=== PATIENT | female | born 1975 | race Caucasian/White ===

== ENCOUNTER 2016-04-26 05:55 | Emergency (ER) | payer OTHER ==
[~2016-04-26 05:55] MED LIST: AMOXICILLIN500 M1 PO; AMOXIL500 M1 PO; FLEXERIL10 MG PO; KLONOPIN0.5 M3 PO; KLONOPIN0.5 MG PO; NAPROSYN500 MG PO; NEURONTIN800 MG PO; NORCO 7.5-3251 EACH PO; OMEPRAZOLE20 M2 PO; OXYCONTIN20 MG PO; PERCOCET 5-3251 TAB PO; PROZAC10 M1 PO; SUMATRIPTAN SUC50 MG PO; ULTRAM PO; VIMPAT100 MG PO; VOLTAREN75 MG PO; ZOFRAN ODT4 MG PO; ZYPREXA PO
[2016-04-26 07:30] LABS: BASOPHIL% 0.4 % (0-2.5); EOSINOPHIL% 0.5 % (0.0-7.0); HEMATOCRIT 36.2 % (35.0-45.0); HEMOGLOBIN 11.9 gm/dL (12.0-16.0); LYMPHOCYTE# 0.5 X10e3 (1.0-3.5); LYMPHOCYTE% 10.7 % (17.0-45.0); MEAN CELL VOLUME 82.3 FL (83-96); MEAN CORPUSCULAR HEMOGLOBIN 27.2 PG (28-34); MEAN PLATELET VOLUME 8.4 FL (6.5-11.5); MONOCYTE# 0.5 X10e3 (0-1.0); MONOCYTE% 10.7 % (3.0-12.0); NEUTROPHIL# 3.9 X10e3 (1.5-7.1); NEUTROPHIL% 77.7 % (40-75); PLATELET COUNT 174 X10e3 (140-420); RED CELL DISTRIBUTION WIDTH 15.1 % (11.0-15.5)
[2016-04-26 07:40] LABS: DIFF IND NO
[2016-04-26 07:54] LABS: ALBUMIN SERUM 3.4 g/dL (3.5-5.0); ALKALINE PHOSPHATASE 64 U/L (32-92); ALT (SGPT) 22 U/L (10-40); AMYLASE 61 U/L (0-46); AST (SGOT) 29 U/L (10-42); BILIRUBIN, DIRECT <0.1 mg/dL (0.0-0.2); BILIRUBIN,INDIRECT 0.3 mg/dL (0.0-0.9); BILIRUBIN,TOTAL 0.4 mg/dL (0.2-2.0); BLOOD UREA NITROGEN 22 mg/dL (9-23); BUN/CREATININE RATIO 36.66; CALCIUM SERUM 9.2 mg/dL (8.4-10.2); CARBON DIOXIDE 26 mmol/L (22-31); CHLORIDE 103 mmol/L (100-111); CREATININE SERUM 0.6 mg/dL (0.6-1.4); GLOM FILT RATE Estimated ABOVE60 mL/min (>60); GLUCOSE FASTING 77 mg/dL (70-110); LIPASE 33 U/L (22-51); POTASSIUM 4.3 mmol/L (3.5-5.1); PROTEIN TOTAL SERUM 6.9 g/dL (6.0-8.3); SODIUM 137 mmol/L (135-145)
[2016-04-26 09:33] LABS: URINE SOURCE CLEAN CATCH
[2016-04-26 09:46] LABS: URINE APPEARANCE CLEAR; URINE BILIRUBIN NEG (NEG); URINE BLOOD NEG (NEG); URINE COLOR YELLOW; URINE GLUCOSE NEG (NEG); URINE KETONE NEG (NEG); URINE LEUKOCYTE ESTERASE TRACE (NEG); URINE NITRATE NEG (NEG); URINE PROTEIN NEG (NEG); URINE SPECIFIC GRAVITY 1.021 (1.003-1.035); URINE UROBILINOGEN 0.2 MG/DL (NEG)
[2016-04-26 09:51] LABS: URBCS1 AUWI 0-2 /[HPF] (0-2); URINE BACTERIA AUWI NEG (NEGATIVE); URINE SQUAMOUS EPITHELIAL CELL NONE SEEN /[HPF]
[2016-04-26 09:52] LABS: CULTURE INDICATED? NO
== END 2016-04-26 10:31 | disposition home or self-care (01) ==
LOC: CED 05:55
PROVIDERS: Emergency Medicine
DX: R11.2 Nausea with vomiting, unspecified (principal); R10.9 Unspecified abdominal pain; F17.200 Nicotine dependence, unspecified, uncomplicated; Z88.0 Allergy status to penicillin; Z88.6 Allergy status to analgesic agent; Z79.899 Other long term (current) drug therapy
CPT/HCPCS: 36415; 80048; 80076; 81003; 82150; 83690; 85025; 96361; 96374; 96375; 96376; 99284; J1200; J2270; J2405

== ENCOUNTER 2016-05-02 10:13 | Inpatient (IN) | payer OTHER ==
--- NOTE | ~2016-05-02 | CO ---
Unit #: [id number] #: [id number] Patient: WARREN RUSH [id number] [address] [place], [place] [address] [id number] I MR#: [id number] NAME: WARREN RUSH ROOM: 237 Age: 40 Sex: F Admission Date: 05/02/2016 : 1975 Attending Physician: Yue Vance M.D. Primary Care Physician: Facundo Oh M.D. Consultation Date: 05/03/2016 CONSULTATION REPORT REASON FOR EVALUATION Neutropenia and anal cancer, please evaluate. HISTORY OF PRESENT ILLNESS This 40-year-old lady who is well known to us with a long history of first colon cancer in 2001, followed by rectal cancer in 2014, liver metastasis, and chemoradiation therapy, now has anal carcinoma undergoing Xeloda plus radiation. Please see my November 26, 2015, consultation for details of her cancers. Today, on questioning she says the anal pain is much better. She had nausea and vomiting which have improved, and she had some urinary symptoms which are also expected due to the local radiation therapy. PAST MEDICAL HISTORY 1. Familial adenomatous polyposis or FAP. 2. Colon, rectal, and now anal carcinoma. 3. Severe anxiety and depression. 4. Rectal pain. CHRONIC MEDICATIONS 1. Xeloda. 2. Zofran. 3. Vimpat. 4. Promethazine. 5. Omeprazole. 6. Sumatriptan. 7. Zyprexa. 8. Prozac. 9. Flexeril. 10. Klonopin. 11. Gabapentin. 12. Percocet. ALLERGIES AMOXICILLIN, ASPIRIN, AND HYDROMORPHONE. REVIEW OF SYSTEMS Anal pain, nausea, vomiting, and diarrhea much improved since admission. No fever or chills, no night sweats. Otherwise, a 12-point review of systems was within normal limits. PHYSICAL EXAMINATION GENERAL: (1) lady, mildly pale, does not appear to be in acute distress, moderately drowsy. LUNGS: Clear. Unit #: [id number] #: [id number] Patient: WARREN RUSH CARDIOVASCULAR: Distant S1 and S2. ABDOMEN: Diffuse tenderness. No rebound, no rigidity. Suprapubic tenderness. PELVIC/BREASTS: Not performed. DIAGNOSTIC STUDIES LABORATORY: CBC with hemoglobin 10.4, hematocrit 32.3, white count 1600, and platelets 138,000. Sodium 139, potassium 3.9, chloride 108, CO2 of 25, glucose 76, BUN 8, and creatinine 0.7. IMPRESSION 1. Neutropenia in this lady with anal carcinoma, on Xeloda and radiation. She has had so far 13 of the 20 treatments. 2. Mild pancytopenia. PLAN Agree with Neupogen and holding the Xeloda. We will recheck a CBC in the morning and inform Radiation Oncology of her presence here and see if they want to see her for radiation tomorrow morning. Dictated by... Ziyad Cruz M.D. SPS/am TD: 05/04/2016 15:33 JOB #: [id number] CONSULTATION REPORT Page 1 of 1 X Ziyad Cruz MD X CONSULTATION REPORT
--- NOTE | ~2016-05-02 | HP ---
Unit #: [id number] #: [id number] Patient: WARREN RUSH [id number] [address] [place], [place] [address] [id number] I MR#: [id number] NAME: WARREN RUSH ROOM: 28976 Age: 40 Sex: F Admission Date: 05/02/2016 : 1975 Attending Physician: Nora Park M.D. Primary Care Physician: Facundo Oh M.D. HISTORY AND PHYSICAL CHIEF COMPLAINT Nausea and vomiting. HISTORY OF PRESENT ILLNESS The patient is a 40-year-old female with history of colorectal and anal cancer, who presented to the emergency room complaining of nausea and vomiting since yesterday. The patient stated that patient has been on oral chemotherapy and had the last radiation on Monday. The patient was doing fine on Monday and started developing nausea and vomiting and unable to keep anything down or take anything by mouth. The patient's last IV chemotherapy was at the beginning of this month. The patient is on oral chemotherapy with Xeloda by mouth. Denies any fever. Complains of the feeling cold. Denies any chills. Denies any chest pain, shortness of breath. The patient also complains of the pain mainly in the left lower quadrant and the pain in the back also. The patient was thought to have UTI. The UA shows 2+ leukocyte esterase and 100-200 urine WBCs and 2+ bacteria. The patient is being admitted for the above reasons. The patient was also found to be hypotensive during the ER evaluation with a blood pressure of 97/66. PAST MEDICAL HISTORY 1. History of colorectal and anal carcinoma. 2. History of severe anxiety. 3. History of depression. 4. Intractable rectal pain from carcinoma. 5. History of right lower lobe pulmonary embolism, currently not on anticoagulation. 6. Normocytic anemia. 7. Asthma. 8. History of familial adenomatous polyposis. 9. History of TIA and CVA. 10. History of previous feeding tube which was removed later. 11. History of colectomy with reversal. 12. Port placement. 13. Polysubstance abuse including marijuana. ALLERGIES Aspirin, amoxicillin, hydromorphone. PAST SURGICAL HISTORY 1. History of D and C x4. 2. Colon resection. 3. Liver resection. 4. Uterine surgery. Unit #: [id number] #: [id number] Patient: WARREN RUSH CURRENT MEDICATIONS 1. Vimpat. 2. Xeloda. 3. Zofran. 4. Promethazine. 5. Omeprazole. 6. Sumatriptan. 7. Zyprexa. 8. Prozac. 9. Flexeril. 10. She takes Klonopin. 11. Gabapentin. 12. Percocet. FAMILY HISTORY Positive for familial adenomatous polyposis and colon cancer. SOCIAL HISTORY Lives with the family. Smokes half pack of cigarettes daily. No alcohol or illicit drug abuse. REVIEW OF SYSTEMS A 14-point review of systems was performed and only pertinent positive findings are described above, remaining are negative. PHYSICAL EXAMINATION GENERAL: On examination, the patient is lying on the bed, not in acute distress. VITAL SIGNS: Temperature 98.1, pulse 103, respiratory rate 20, blood pressure 126/79, saturating 100% on room air. HEENT: Head: Atraumatic, normocephalic. Pupils equal, round, and reactive to light and accommodation. Extraocular movements are intact. Dry mucous membranes. NECK: Supple. No JVD. LUNGS: Clear to auscultation bilaterally. No rhonchi. No wheezing. HEART: Regular rate and rhythm. ABDOMEN: Soft. Positive bowel sounds. Tenderness at the left lower quadrant. EXTREMITIES: No pedal edema. No cyanosis. No clubbing. SKIN: No rashes. NEUROLOGIC: The patient is alert, awake, oriented. No gross focal motor deficit. DIAGNOSTIC STUDIES LABORATORY: Glucose 88, BUN 16, creatinine 0.8, sodium 140, potassium 3.8, chloride 109, bicarbonate 28. Total protein 6.7, albumin 3.2, AST 18, ALT 18, alkaline phosphatase 64, amylase 51. Lactic acid 0.6. INR is 1. WBC 3.3, hemoglobin 11.3, hematocrit 35.1, platelets 185,000. UA shows 2+ leukocyte esterase, 1+ blood, 100-200 urine WBCs, 2+ urine bacteria. IMAGING: Chest x-ray shows no acute cardiopulmonary findings. ASSESSMENT 1. Nausea and vomiting. 2. Urinary tract infection. 3. History of colon and anal cancer, on chemotherapy. Unit #: [id number] #: [id number] Patient: WARREN RUSH 4. Hypotension. PLAN Plan to admit the patient to the inpatient with the telemetry. Continue with IV antibiotics with Rocephin. Continue supportive care with Zofran and fluids normal saline (1) mL per hour. Pain controlled with morphine. Repeat the labs again in the morning. Further recommendations will follow. Dictated by Paulino Vasques TD: 05/02/2016 16:16 JOB #: [id number] HISTORY AND PHYSICAL X X HISTORY AND PHYSICAL
--- NOTE | ~2016-05-02 | DS ---
Unit #: [id number] #: [id number] Patient: WARREN WATSON [id number] [address] [address] [id number] I MR#: [id number] NAME: WARREN WATSON ROOM: 237 Age: 40 Sex: F Admission Date: 05/02/2016 : 1975 Discharge Date: 05/04/2016 Attending Physician: Yue Vance M.D. Primary Care Physician: Facundo Oh M.D. DISCHARGE SUMMARY PRIMARY CARE PROVIDER Facundo oh M.D. PRINCIPAL DIAGNOSES 1. 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 2. Nausea and vomiting, now resolved. 3. Severe anxiety. 4. Chemotherapy-induced pancytopenia, now resolved. 5. Rectal cancer. 6. Systemic inflammatory response syndrome. 7. Gastroesophageal reflux disease. 8. Mild protein malnutrition. 9. Familial adenomatous polyposis. 10. Tobaccoism. CONSULTANTS Dr. Cruz, Oncology. PROCEDURES Chest x-ray on 05/02/2016 with no acute findings, hyperinflation of the lungs is noted. CLINICAL HISTORY AND HOSPITAL COURSE Ms. Watson is a 40-year-old female with a history of rectal and anal cancer, metastatic to the liver, who presents to the emergency department with nausea, vomiting, and diarrhea. Please refer to H and P for further details. The patient was mildly hypotensive upon presentation and was found to have questionably urine infection. She was subsequently admitted. The patient was started on empiric antibiotics for questionable UTI, but urine culture was negative. Antibiotics were discontinued. Her nausea and vomiting resolved with just supportive measures, i.e., antiemetics, and IV fluids. The patient was pancytopenic and Dr. Cruz was consulted. She received a single dose of Neupogen and leukopenia has resolved. Her diarrhea is felt to be radiation induced, which I have discussed with her on several occasions. She will continue radiation under the care of Dr. Bong Sauer. The patient does have severe anxiety and upon review of records, it was suggested that her Prozac and her Zyprexa should be increased. I am going to increase her Prozac, but leave Zyprexa to Dr. Oh. Unit #: [id number] #: [id number] Patient: WARREN WATSON DISCHARGE CONDITION Stable. DISCHARGE STATUS Discharged to home. DISCHARGE MEDICATIONS Neurontin 800 mg t.i.d., Vimpat 100 mg b.i.d., Prozac 20 mg daily, Zofran 4 mg p.o. t.i.d. p.r.n. for anxiety, Phenergan 25 mg p.o. b.i.d. p.r.n. for nausea, Xeloda 1500 mg b.i.d., Klonopin 0.5 mg t.i.d., Imitrex 50 mg daily p.r.n. for migraine, Percocet 10/325 one tablet p.o. q.6 hours p.r.n. for pain, omeprazole 20 mg daily, Zyprexa 5 mg at bedtime, Flexeril 10 mg p.o. t.i.d. p.r.n. for muscle spasm. DISCHARGE INSTRUCTIONS The patient was instructed to follow a regular diet. She can increase her activity as tolerated. She should refrain from any further tobacco use. FOLLOWUP The patient should follow up with Dr. Facundo Oh in 2 weeks. She will follow up with Dr. Cruz and Dr. Sauer as previously scheduled. Dictated by... Yue Vance M.D. NELSON/obey TD: 05/05/2016 06:23 JOB #: [id number] DISCHARGE SUMMARY Page 1 of 1 X Yue Vance MD X DISCHARGE SUMMARY
--- NOTE | ~2016-05-02 | EKG ---
PATIENT: WARREN RUSH UNIT #: [id number] Ventricular Rate: 77 BPM Atrial Rate: 77 BPM P-R Interval: 114 ms QRS Duration: 88 ms Q-T Interval: 382 ms QTC Calculation(Bezet): 432 ms P [place]: 30 degrees Calculated R [place]: 92 degrees Calculated T [place]: 76 degrees Diagnosis Line: Normal sinus rhythm Diagnosis Line: Rightward axis Diagnosis Line: Borderline ECG Diagnosis Line: When compared with ECG of 07-JAN-2016 23:46, Diagnosis Line: Nonspecific T wave abnormality no longer evident Diagnosis Line: in Anterior leads Diagnosis Line: Confirmed by KOLTON CULVER MD ([id number]) on Diagnosis Line: 05/03/2016 2:22:03 PM INTERPRETING MD: PALOMO GUERRIER
--- NOTE | ~2016-05-02 | CR72 ---
[facility] A Service of [facility] RADIOLOGY TEXT RESULTS PATIENT: WARREN RUSH LOCATION: [facility] 330-01 : 75 UNIT #: [id number] AGE: [address]: EVERTON TOMAS MD SEX: F ORDER DR: [id number] [facility] [address] [facility]. [place], [place] [address] [id number] E MR#: [id number] Acc #: [id number] NAME: WARREN RUSH : 1975 SEX: F STUDY DATE/TIME: 05/02/2016 10:19 UNIT: DAMIAN ROOM: STUDY DESCRIPTION: CR Chest Single View Portable Attending Physician: Kin Colvin M.D. Ordering Physician: Kin Colvin M.D. Primary Care Physician: Facundo Oh M.D. MEDICAL IMAGING REPORT This report is preliminary unless electronic signature is present EXAM Chest portable 05/02/2016 11:14 hours. HISTORY 40-year-old woman with history of liver cancer and colon resection, complaining of nausea, vomiting, diarrhea with cough today. COMPARISON 03/05/2016. FINDINGS Portable upright chest demonstrates stable right IJ port catheter with tip in SVC. The cardiac, mediastinal and hilar contours are normal. The lungs are hyperinflated but clear. There is no pleural effusion, pneumothorax or free air seen in the abdomen. Stable plate and screw fixator through the clavicle. IMPRESSION No acute cardiopulmonary findings or change from 03/05/2016. Lungs are hyperinflated but clear. Dictated by... Madisyn Chicas M.D. THIS IS AN ELECTRONICALLY VERIFIED REPORT Madisyn Chicas M.D. at 05/02/2016 6:54 PM SMM/gz TD: 05/02/2016 14:49 JOB #: [id number] MEDICAL IMAGING REPORT Page 1 of 1 COPY
[2016-05-02 10:50] LABS: BASOPHIL% 0.4 % (0-2.5); EOSINOPHIL# 0.1 X10e3 (0-0.7); EOSINOPHIL% 2.9 % (0.0-7.0); HEMATOCRIT 35.1 % (35.0-45.0); HEMOGLOBIN 11.3 gm/dL (12.0-16.0); LYMPHOCYTE# 0.4 X10e3 (1.0-3.5); LYMPHOCYTE% 11.9 % (17.0-45.0); MEAN CORPUSCULAR HEMOGLOBIN 26.6 PG (28-34); MEAN CORPUSCULAR HGB CONC 32.1 g/dL (30-36); MONOCYTE# 0.5 X10e3 (0-1.0); MONOCYTE% 14.9 % (3.0-12.0); NEUTROPHIL# 2.3 X10e3 (1.5-7.1); NEUTROPHIL% 69.9 % (40-75); PLATELET COUNT 185 X10e3 (140-420); RED BLOOD COUNT 4.24 X10e (3.90-5.30); RED CELL DISTRIBUTION WIDTH 16.3 % (11.0-15.5); WHITE BLOOD COUNT 3.3 X10e3 (4.0-10.5)
[2016-05-02 10:55] LABS: DIFF IND NO
[2016-05-02 11:14] LABS: ALBUMIN SERUM 3.2 g/dL (3.5-5.0); ALKALINE PHOSPHATASE 64 U/L (32-92); ALT (SGPT) 18 U/L (10-40); AST (SGOT) 18 U/L (10-42); BILIRUBIN, DIRECT <0.1 mg/dL (0.0-0.2); BILIRUBIN,INDIRECT 0.2 mg/dL (0.0-0.9); BILIRUBIN,TOTAL 0.3 mg/dL (0.2-2.0); BLOOD UREA NITROGEN 16 mg/dL (9-23); CALCIUM SERUM 8.8 mg/dL (8.4-10.2); CARBON DIOXIDE 28 mmol/L (22-31); CHLORIDE 109 mmol/L (100-111); CREATININE SERUM 0.8 mg/dL (0.6-1.4); GLOM FILT RATE Estimated ABOVE60 mL/min (>60); GLUCOSE FASTING 88 mg/dL (70-110); LIPASE 42 U/L (22-51); POTASSIUM 3.8 mmol/L (3.5-5.1); PROTEIN TOTAL SERUM 6.7 g/dL (6.0-8.3); SODIUM 140 mmol/L (135-145)
[2016-05-02 12:42] LABS: URINE SOURCE CLEAN CATCH
[2016-05-02 12:48] LABS: URINE APPEARANCE CLOUDY; URINE BILIRUBIN NEG (NEG); URINE BLOOD 1+ (NEG); URINE COLOR YELLOW; URINE GLUCOSE NEG (NEG); URINE KETONE NEG (NEG); URINE LEUKOCYTE ESTERASE 2+ (NEG); URINE NITRATE NEG (NEG); URINE PH 6.5 (5-8); URINE PROTEIN NEG (NEG); URINE SPECIFIC GRAVITY 1.022 (1.003-1.035); URINE UROBILINOGEN 0.2 MG/DL (NEG)
[2016-05-02 12:51] LABS: CULTURE INDICATED? YES; URINE BACTERIA AUWI 2+ (NEGATIVE); URINE SQUAMOUS EPITHELIAL CELL OCC /[HPF]; UWBCS1 AUWI 100-200 (0-5)
[2016-05-02 13:06] LABS: U HYALINE CASTS AUWI 0-2 /[LPF]; URINE MUCUS PRESENT
[2016-05-02] MEDS ORDERED: VIMPAT100 MG PO (14:48)
[2016-05-02] MEDS ORDERED: XELODA500 MG PO (14:49)
[2016-05-02] MEDS ORDERED: ZOFRAN ODT4 MG PO (14:50)
[2016-05-02] MEDS ORDERED: PROMETHAZINE HC25 MG PO (14:51)
[2016-05-02] MEDS ORDERED: SUMATRIPTAN SUC50 MG PO (14:52)
[2016-05-02] MEDS ORDERED: OMEPRAZOLE20 M2 PO (14:52)
[2016-05-02] MEDS ORDERED: ZYPREXA PO (14:53)
[2016-05-02] MEDS ORDERED: PROZAC10 M1 PO (14:53)
[2016-05-02] MEDS ORDERED: FLEXERIL10 MG PO (14:54)
[2016-05-02] MEDS ORDERED: KLONOPIN0.5 MG PO (15:01)
[2016-05-02] MEDS ORDERED: PERCOCET 10/3251 TAB PO (15:01)
[2016-05-02] MEDS ORDERED: GABAPENTIN800 MG PO (15:01)
[2016-05-03 05:26] LABS: HEMATOCRIT 32.3 % (35.0-45.0); HEMOGLOBIN 10.4 gm/dL (12.0-16.0); MEAN CORPUSCULAR HEMOGLOBIN 26.8 PG (28-34); MEAN CORPUSCULAR HGB CONC 32.3 g/dL (30-36); MEAN PLATELET VOLUME 7.8 FL (6.5-11.5); RED BLOOD COUNT 3.89 X10e (3.90-5.30); RED CELL DISTRIBUTION WIDTH 16.8 % (11.0-15.5)
[2016-05-03 05:28] LABS: WHITE BLOOD COUNT 1.6 X10e3 (4.0-10.5)
[2016-05-03 06:00] LABS: BLOOD UREA NITROGEN 8 mg/dL (9-23); BUN/CREATININE RATIO 11.42; CALCIUM SERUM 8.6 mg/dL (8.4-10.2); CARBON DIOXIDE 25 mmol/L (22-31); CHLORIDE 108 mmol/L (100-111); CREATININE SERUM 0.7 mg/dL (0.6-1.4); GLOM FILT RATE Estimated ABOVE60 mL/min (>60); GLUCOSE FASTING 76 mg/dL (70-110); POTASSIUM 3.9 mmol/L (3.5-5.1); SODIUM 139 mmol/L (135-145)
[2016-05-04 09:04] LABS: HEMATOCRIT 34.4 % (35.0-45.0); HEMOGLOBIN 11.2 gm/dL (12.0-16.0); MEAN CELL VOLUME 82.3 FL (83-96); MEAN CORPUSCULAR HEMOGLOBIN 26.9 PG (28-34); MEAN CORPUSCULAR HGB CONC 32.6 g/dL (30-36); MEAN PLATELET VOLUME 7.6 FL (6.5-11.5); RED BLOOD COUNT 4.18 X10e (3.90-5.30); RED CELL DISTRIBUTION WIDTH 17.5 % (11.0-15.5)
[2016-05-04 09:47] LABS: BLOOD UREA NITROGEN 10 mg/dL (9-23); BUN/CREATININE RATIO 11.11; CALCIUM SERUM 8.8 mg/dL (8.4-10.2); CARBON DIOXIDE 28 mmol/L (22-31); CHLORIDE 105 mmol/L (100-111); CREATININE SERUM 0.9 mg/dL (0.6-1.4); GLOM FILT RATE Estimated ABOVE60 mL/min (>60); GLUCOSE FASTING 77 mg/dL (70-110); POTASSIUM 3.7 mmol/L (3.5-5.1); SODIUM 138 mmol/L (135-145)
== END 2016-05-04 16:22 | disposition home or self-care (01) | DRG 393 ==
LOC: CED 10:13 → CEDOF 14:55 → C3A PCU 18:41 → C2A 05-04 09:12
PROVIDERS: Emergency Medicine; Internal Medicine
DX: K62.7 Radiation proctitis (principal); D61.810 Antineoplastic chemotherapy induced pancytopenia; C78.7 Secondary malignant neoplasm of liver and intrahepatic bile duct; E46 Unspecified protein-calorie malnutrition; C21.0 Malignant neoplasm of anus, unspecified; K21.9 Gastro-esophageal reflux disease without esophagitis; D12.6 Benign neoplasm of colon, unspecified; R11.2 Nausea with vomiting, unspecified; F41.9 Anxiety disorder, unspecified; F17.210 Nicotine dependence, cigarettes, uncomplicated
CPT/HCPCS: 36415; 71010; 80048; 80076; 81003; 83605; 83630; 83690; 85025; 85027; 87040; 87086; 87493; 93005; 96361; 96374; 96375; 99285; J0696; J1447; J1642; J1650; J2270; J2405; J8521

== ENCOUNTER 2016-05-07 13:44 | Observation (INO) | payer OTHER ==
--- NOTE | ~2016-05-07 | CT16 ---
[facility] A Service of [facility] RADIOLOGY TEXT RESULTS PATIENT: WARREN RUSH LOCATION: [facility] : 75 UNIT #: [id number] AGE: [address]: Donavon Garcia MD SEX: F ORDER DR: [id number] [facility] [address] [facility]. [place], [place] [address] [id number] I MR#: [id number] Acc #: [id number] NAME: WARREN RUSH : 1975 SEX: F STUDY DATE/TIME: 05/07/2016 17:44 UNIT: CEDOF ROOM: 21538 STUDY DESCRIPTION: CT Angio Chest for PE Attending Physician: Donavon Marks M.D. Ordering Physician: Alex Fallon D.O. Primary Care Physician: Facundo Oh M.D. MEDICAL IMAGING REPORT This report is preliminary unless electronic signature is present EXAM CT chest PE protocol. HISTORY Shortness of air since yesterday. Also complains of abdominal pain. Past history of CVA. Prior liver resection. COMPARISON STUDIES CT chest, 01/25/2016. TECHNIQUE Axial images performed through the chest following IV contrast. 3-D coronal and sagittal reconstructed images reviewed at a workstation. This CT exam was performed with one or more of the following radiation dose reduction techniques: automatic exposure control, adjustment of mA and/or kV according to patient size, and iterative reconstruction. FINDINGS Mild pulmonary hyperinflation and patchy hyperlucency suggests emphysema. No acute airspace disease or consolidation. No effusions. Normal enhancement of the pulmonary arteries. No evidence of embolus. Heart size within normal limits. Aorta free of dissection or aneurysm. Upper abdomen remarkable for postsurgical changes from apparent liver resection. Osseous structures thoracic inlet unremarkable. Postsurgical changes are seen in the right clavicle. IMPRESSION 1. No acute intrathoracic abnormality identified. In particular, no evidence of embolus. 2. Pulmonary emphysema. [facility] A Service [facility] RADIOLOGY TEXT RESULTS PATIENT: WARREN RUSH LOCATION: [facility] 330 : 75 UNIT #: [id number] AGE: [address]: Donavon Garcia MD SEX: F ORDER DR: Dictated by... Israel Corcoran M.D. THIS IS AN ELECTRONICALLY VERIFIED REPORT Israel Corcoran M.D. at 05/08/2016 10:52 PM CAMERON/karissa TD: 05/08/2016 09:47 JOB #: [id number] MEDICAL IMAGING REPORT Page 1 of 1 COPY
--- NOTE | ~2016-05-07 | CR72 ---
[facility] A Service of [facility] RADIOLOGY TEXT RESULTS PATIENT: WARREN RUSH LOCATION: [facility] 330-01 : [birth year] UNIT #: [id number] AGE: [address]: Donavon Garcia MD SEX: F ORDER DR: [id number] [facility] [address] [facility]. [place], [place] [address] [id number] I MR#: [id number] Acc #: [id number] NAME: WARREN RUSH : 1975 SEX: F STUDY DATE/TIME: 05/07/2016 15:11 UNIT: CEDOF ROOM: 35311 STUDY DESCRIPTION: CR Chest Single View Portable Attending Physician: Nora Park M.D. Ordering Physician: Alex Fallon D.O. Primary Care Physician: Facundo Oh M.D. MEDICAL IMAGING REPORT This report is preliminary unless electronic signature is present EXAM Portable chest HISTORY Shortness of air and chest pain and right side pain for 4 days. FINDINGS The cardiac size and pulmonary vascularity are normal. No infiltrates or effusions. Right sided port catheter tip is in the low SVC. Internal fixation right clavicle. Mild mid-right thoracic curve. IMPRESSION No acute findings. Lungs are clear. Dictated by... Felix Devries M.D. THIS IS AN ELECTRONICALLY VERIFIED REPORT Felix Devries M.D. at 05/08/2016 5:15 PM DFL/rnr TD: 05/08/2016 04:49 JOB #: [id number] MEDICAL IMAGING REPORT Page 1 of 1 COPY
--- NOTE | ~2016-05-07 | HP ---
Unit #: [id number] #: [id number] Patient: WARREN RUSH [id number] [address] [address] [id number] I MR#: [id number] NAME: WARREN RUSH ROOM: 60865 Age: 40 Sex: F Admission Date: 05/07/2016 : 1975 Attending Physician: Donavon Marks M.D. Primary Care Physician: Facundo Oh M.D. HISTORY AND PHYSICAL CHIEF COMPLAINT Nausea, vomiting, and diarrhea. 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 The patient presented to the emergency room complaining of the nausea and vomiting and associated abdominal pain, started yesterday. The patient has had multiple admissions in the past for similar reasons. The patient denies any fever or chills. The patient had her last radiation on and the patient is on oral chemotherapy. Denies any chest pain, palpitations, or head trauma. PAST MEDICAL HISTORY 1. History of colorectal and anal cancer. 2. History of severe anxiety/depression, and intractable pain from carcinoma. 3. History of pulmonary embolism currently not on anticoagulation. 4. Normocytic anemia. 5. Asthma. 6. Familial adenomatous polyposis. 7. Transient ischemic attack. 8. Cerebrovascular accident. 9. Port placement. 10. Polysubstance abuse including marijuana. ALLERGIES Aspirin, amoxicillin, and hydromorphone. PAST SURGICAL HISTORY 1. History of D and C x4. 2. Colon resection. 3. Liver resection 4. Uterine surgery. HOME MEDICATIONS She is on: 1. Vimpat 2. Xeloda 3. Zofran 4. Promethazine 5. Omeprazole Unit #: [id number] #: [id number] Patient: WARREN RUSH 6. Sumatriptan 7. Zyprexa 8. Prozac 9. Flexeril 10. Klonopin 11. Gabapentin 12. Percocet FAMILY HISTORY Positive for familial adenomatous polyposis and colon cancer. SOCIAL HISTORY She lives with her family. She smokes half a pack of cigarettes daily, no alcohol or illicit drug abuse. REVIEW OF SYSTEMS A fourteen-point review of systems was performed and only pertinent positive findings are described above, remaining are negative. PHYSICAL EXAMINATION GENERAL: The patient is lying on the bed not in acute distress. VITAL SIGNS: Temperature 97.7, pulse 104, respirations 16, and blood pressure 101/59, and satting 100% at room air. HEENT: Head: Atraumatic, normocephalic. Pupils equal, round, and reactive to light and accommodation. Dry mucous membranes. NECK: Supple. No jugular venous distention. LUNGS: Clear to auscultation bilaterally, no rhonchi, and no wheezing. HEART: Regular rate and rhythm. ABDOMEN: Soft, positive bowel sounds. EXTREMITIES: No cyanosis, no clubbing. SKIN: No rashes. NEUROLOGIC: The patient is alert, awake, and oriented, no gross focal motor deficit. DIAGNOSTIC STUDIES LABORATORY DATA: Glucose 68, BUN 15, creatinine 0.7, sodium 139, potassium 3.9, chloride 102, bicarb 28, calcium 9.4, total protein 8, total bilirubin is less than 0.1, AST 35, ALT 30, alkaline phosphatase 80, and lipase 29, and lactic acid is 1.4. Beta HCG is negative. INR is 1. White blood count 3.5, hemoglobin 13.4, hematocrit 41.8, platelets 208, and urinalysis shows 1+ leukocyte esterase, and 5-10 urine WBCs. ASSESSMENT/PLAN 1. Nausea and vomiting. 2. History of rectal cancer. 3. 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 4. Hypotension. Plan to admit the patient to observation telemetry, continue IV fluids with the normal saline 125 mL per hour, continue with the Protonix and Zofran, and check the stools for the cultures, ova and parasite, and C. Difficile and repeat the labs again in the morning and further recommendations to follow. Dictated by Nora Park M.D. Unit #: [id number] #: [id number] Patient: WARREN RUSH/charles TD: 05/08/2016 09:46 JOB #: [id number] HISTORY AND PHYSICAL Page 1 of 1 X X HISTORY AND PHYSICAL
--- NOTE | ~2016-05-07 | DS ---
Unit #: [id number] #: [id number] Patient: WARREN WATSON [id number] [address] [address] [id number] I MR#: [id number] NAME: WARREN WATSON ROOM: 330 Age: 40 Sex: F Admission Date: 05/07/2016 : 1975 Discharge Date: 05/09/2016 Attending Physician: Yue Vance M.D. Primary Care Physician: Facundo Oh M.D. DISCHARGE SUMMARY PRIMARY CARE PHYSICIAN Facundo Oh M.D. PRINCIPAL DIAGNOSES 1. Radiation proctitis, now with soft formed stools. 2. Vulvovaginitis, status post Diflucan. 3. Nausea and vomiting, currently tolerating intake. 4. Drug-seeking behavior. 5. Tobaccoism. 6. Chronic pain syndrome. 7. Rectal cancer, maintained on chemotherapy and radiation. 8. Severe anxiety and depression. 9. Familial adenomatous polyposis. 10. Gastroesophageal reflux disease. CONSULTANTS None. PROCEDURES 1. CT angiogram of the chest on 05/07/2016 which was negative for PE. Emphysema noted. 2. Chest x-ray on 07/07/2016 which was negative. CLINICAL HISTORY AND HOSPITAL COURSE Ms. Watson is a 40-year-old female with a history of rectal cancer, who presents back to the emergency department with intractable nausea, vomiting, and diarrhea following discharge on 05/04/2016. Please refer to H and P for further details. Blood work in the emergency department is unremarkable. The patient was placed in observation. The patient was started on clear liquid diet, which has been advanced and she is not tolerating a diet without any nausea or vomiting. She continues to have some loose, but soft stools and does not have any evidence of infection. The patient's diarrhea secondary to her underlying rectal cancer and subsequent treatment. This was discussed with Dr. Cruz, who saw the patient last week, and there are no plans for any further changes in treatment. The patient does demonstrate significant drug-seeking behavior. She is on chronic Percocet at home and I will not adjust the dose. This can be followed up by her primary physician. Unit #: [id number] #: [id number] Patient: WARREN WATSON DISCHARGE CONDITION Stable. DISCHARGE STATUS Discharged to home. DISCHARGE MEDICATIONS Neurontin 800 mg p.o. t.i.d.; Vimpat 100 mg b.i.d.; Prozac 20 mg daily; Zofran 4 mg p.o. t.i.d. p.r.n. for nausea; Phenergan 25 mg p.o. b.i.d. p.r.n. for nausea; Xeloda 1500 mg b.i.d.; Klonopin 0.5 mg t.i.d.; Imitrex 50 mg daily p.r.n. for migraine; Percocet 10/325 one tablet p.o. q.6 hours p.r.n. for pain, no prescription given; omeprazole 20 mg daily; Zyprexa 5 mg daily; Flexeril 10 mg p.o. t.i.d. p.r.n. for muscle spasm. DISCHARGE INSTRUCTIONS The patient was instructed to follow a regular diet. She can increase her activity as tolerated to refrain from any further tobacco use. FOLLOWUP The patient will follow up with Dr. Cruz as instructed if she presents back to the emergency department without any significant signs of infection perhaps evaluation by [facility] would be appropriate given her nausea, vomiting, diarrhea, may be psychiatric in origin. Dictated by... Yue Vance M.D. NELSON/obey TD: 05/10/2016 01:40 JOB #: [id number] DISCHARGE SUMMARY Page 1 of 1 X Yue Vance MD X DISCHARGE SUMMARY
[~2016-05-07 13:44] MED LIST changes: +GABAPENTIN800 MG PO; +PERCOCET 10/3251 TAB PO; +PROMETHAZINE HC25 MG PO; +XELODA500 MG PO
[2016-05-07 15:17] LABS: URINE SOURCE CLEAN CATCH
[2016-05-07 15:27] LABS: URINE APPEARANCE CLOUDY; URINE BILIRUBIN NEG (NEG); URINE BLOOD NEG (NEG); URINE COLOR YELLOW; URINE GLUCOSE NEG (NEG); URINE KETONE NEG (NEG); URINE LEUKOCYTE ESTERASE 1+ (NEG); URINE NITRATE NEG (NEG); URINE PH 8.5 (5-8); URINE PROTEIN NEG (NEG); URINE SPECIFIC GRAVITY 1.023 (1.003-1.035); URINE UROBILINOGEN 0.2 MG/DL (NEG)
[2016-05-07 15:30] LABS: BASOPHIL% 0.5 % (0-2.5); CULTURE INDICATED? YES; EOSINOPHIL# 0.1 X10e3 (0-0.7); EOSINOPHIL% 1.9 % (0.0-7.0); HEMATOCRIT 41.8 % (35.0-45.0); HEMOGLOBIN 13.4 gm/dL (12.0-16.0); LYMPHOCYTE# 0.4 X10e3 (1.0-3.5); LYMPHOCYTE% 10.8 % (17.0-45.0); MEAN CELL VOLUME 83.2 FL (83-96); MEAN CORPUSCULAR HEMOGLOBIN 26.7 PG (28-34); MEAN CORPUSCULAR HGB CONC 32.1 g/dL (30-36); MONOCYTE# 0.5 X10e3 (0-1.0); NEUTROPHIL# 2.6 X10e3 (1.5-7.1); NEUTROPHIL% 73.8 % (40-75); PLATELET COUNT 208 X10e3 (140-420); RED BLOOD COUNT 5.02 X10e (3.90-5.30); RED CELL DISTRIBUTION WIDTH 18.2 % (11.0-15.5); URBCS1 AUWI 0-2 /[HPF] (0-2); URINE BACTERIA AUWI NEG (NEGATIVE); URINE SQUAMOUS EPITHELIAL CELL OCC /[HPF]; WHITE BLOOD COUNT 3.5 X10e3 (4.0-10.5)
[2016-05-07 15:32] LABS: DIFF IND NO
[2016-05-07 15:37] LABS: POC - CKMB <1.0 ng/mL (0.0-7.9); POC - TROPONIN <0.05 ng/mL (<=0.05)
[2016-05-07 16:07] LABS: ALKALINE PHOSPHATASE 80 U/L (32-92); ALT (SGPT) 30 U/L (10-40); AST (SGOT) 35 U/L (10-42); BILIRUBIN, DIRECT 0.1 mg/dL (0.0-0.2); BLOOD UREA NITROGEN 15 mg/dL (9-23); BUN/CREATININE RATIO 21.42; CALCIUM SERUM 9.4 mg/dL (8.4-10.2); CARBON DIOXIDE 28 mmol/L (22-31); CHLORIDE 102 mmol/L (100-111); CREATININE SERUM 0.7 mg/dL (0.6-1.4); GLOM FILT RATE Estimated 108.4 mL/min (>60); GLUCOSE FASTING 68 mg/dL (70-110); LIPASE 29 U/L (22-51); POTASSIUM 3.9 mmol/L (3.5-5.1); SODIUM 139 mmol/L (135-145)
[2016-05-07 16:08] LABS: BILIRUBIN,TOTAL <0.1 mg/dL (0.2-2.0)
[2016-05-07 17:14] LABS: POC - CKMB <1.0 ng/mL (0.0-7.9); POC - TROPONIN <0.05 ng/mL (<=0.05)
[2016-05-08 05:37] LABS: HEMATOCRIT 32.7 % (35.0-45.0); MEAN CELL VOLUME 83.5 FL (83-96); MEAN CORPUSCULAR HGB CONC 32.3 g/dL (30-36); MEAN PLATELET VOLUME 8.1 FL (6.5-11.5); RED BLOOD COUNT 3.92 X10e (3.90-5.30); RED CELL DISTRIBUTION WIDTH 18.3 % (11.0-15.5); WHITE BLOOD COUNT 3.3 X10e3 (4.0-10.5)
[2016-05-08 05:42] LABS: HEMOGLOBIN 10.6 gm/dL (12.0-16.0)
[2016-05-08 08:02] LABS: BUN/CREATININE RATIO 23.33; CALCIUM SERUM 8.8 mg/dL (8.4-10.2); CREATININE SERUM 0.6 mg/dL (0.6-1.4); POTASSIUM 4.3 mmol/L (3.5-5.1)
[2016-05-09] MEDS ORDERED: BENADRYL25 M1 PO (12:14)
== END 2016-05-09 12:49 | disposition home or self-care (01) ==
LOC: CED 13:44 → CEDOF 18:34 → C3A PCU 05-08 09:59
PROVIDERS: Emergency Medicine; Internal Medicine
DX: K62.7 Radiation proctitis (principal); Y84.2 Radiological procedure and radiotherapy as the cause of abnormal reaction of the patient, or of later complication, without mention of misadventure at the time of the procedure; C20 Malignant neoplasm of rectum; I95.9 Hypotension, unspecified; N76.0 Acute vaginitis; R11.2 Nausea with vomiting, unspecified; Z76.5 Malingerer [conscious simulation]; F17.210 Nicotine dependence, cigarettes, uncomplicated; G89.4 Chronic pain syndrome; F41.8 Other specified anxiety disorders; K21.9 Gastro-esophageal reflux disease without esophagitis; Z85.038 Personal history of other malignant neoplasm of large intestine; Z86.711 Personal history of pulmonary embolism; Z86.73 Personal history of transient ischemic attack (TIA), and cerebral infarction without residual deficits; Z88.1 Allergy status to other antibiotic agents; Z88.6 Allergy status to analgesic agent; Z88.5 Allergy status to narcotic agent; Z80.0 Family history of malignant neoplasm of digestive organs; Z83.71 Family history of colonic polyps
CPT/HCPCS: 36415; 51701; 71010; 71275; 80048; 80076; 81003; 82553; 83605; 83690; 84484; 84703; 85025; 85027; 87086; 96361; 96365; 96372; 96374; 96375; 96376; 99285; C9113; G0378; J1642; J1650; J2270; J2405; J8521; Q9967

== ENCOUNTER 2016-06-18 22:55 | Inpatient (IN) | payer OTHER ==
--- NOTE | ~2016-06-18 | TOC ---
Unit #: [id number] #: [id number] Patient: WARREN RUSH [id number] [address] [place], [place] [address] [id number] I MR#: [id number] NAME: WARREN RUSH ROOM: 228 Age: 40 Sex: F Admission Date: 06/19/2016 : 1975 Attending Physician: Hardy Molina M.D. Primary Care Physician: Facundo Oh M.D. TRANSFER OF CARE SUMMARY ADMITTING DIAGNOSES 1. Disorientation. 2. History of colorectal and anal cancer. 3. Intractable pain. 4. History of pulmonary embolism. 5. Asthma. 6. History of stroke. 7. Polysubstance abuse, including marijuana. CONSULTANTS 1. Dr. Ziyad Cruz. 2. Dr. Levine. HISTORY OF PRESENTING ILLNESS The patient is a 40-year-old lady with a past medical history of colorectal cancer, currently on chemotherapy and radiation therapy. Was brought to the emergency room on the because of altered mental status and rectal bleeding, disorientation. HOSPITAL COURSE She was seen by oncology, [facility]. Oncology recommended to hold treatments at this point. For the rectal bleeding, her H and H were monitored, and surgery recommended conservative management. She was getting confused. She had a sitter. She got an MRI of the brain. There were no acute lesions in the brain. Neurology was consulted. Her narcotics were kept on hold. Narcotics are possibly making her a little bit drowsier at this point. Regarding the disposition, there were issues with her disposition. Initially she mentioned she lives alone and later with her sister, Samantha. The case making machine operator called the patient's sister who is listed in the chart, and the plan is to send her home with home health care and to follow with oncology as an outpatient. She will be discharged when she is a little bit more alert, possibly in a day or two. Dictated by... Hardy Molina M.D. PS/db TD: 06/27/2016 09:41 JOB #: [id number] Unit #: [id number] #: [id number] Patient: WARREN RUSH TRANSFER OF CARE SUMMARY Page 1 of 1 X X TRANSFER OF CARE SUMMARY
--- NOTE | ~2016-06-18 | CO ---
Unit #: [id number] #: [id number] Patient: WARREN WATSON [id number] [address] [address] [id number] I MR#: [id number] NAME: WARREN WATSON ROOM: 564 Age: 40 Sex: F Admission Date: 06/19/2016 : 1975 Attending Physician: Hardy Molian M.D. Primary Care Physician: Facundo Oh M.D. CONSULTATION REPORT CHIEF COMPLAINT Confusion. HISTORY OF PRESENT ILLNESS Ms. Watson is a 40-year-old lady with a history of colorectal cancer with mets to the liver who was admitted for rectal bleeding. She also was very confused, unable to give any of her history, was very drowsy and difficult to communicate. Neurology was consulted for further evaluation. At this time, patient is drowsy but able to follow simple commands. REVIEW OF SYSTEMS GENERAL: Positive for overall decline. SKIN/HEENT/PULMONARY/CARDIOVASCULAR: Negative. GI: Positive for rectal bleeding. : Negative. MUSCULOSKELETAL: Positive for whole body pains. NEUROLOGICAL: Positive for confusion. PSYCHIATRIC: Positive for severe depression. PAST MEDICAL HISTORY 1. Positive for metastatic colorectal cancer, status post resection. 2. Severe depression. 3. Anxiety. 4. Familial adenomatous polyposis. 5. Pulmonary embolism. 6. Asthma. 7. Seizure. SOCIAL HISTORY Positive for tobacco use. Patient also has a propensity for narcotic use. FAMILY HISTORY Unobtainable. Patient is unable to give any family history. FAMILY HISTORY As obtained from the chart, is positive for familial adenomatous polyposis and colon cancer. EXAMINATION Upon examination, patient is drowsy but oriented x2. She follows simple commands. Fund of knowledge is below average. Memory and attention span are impaired. Her temperature is 97.9, pulse is 90, respirations are 18, blood pressure is 92/53. Her visual clark are full. There is no papilledema. Extraocular muscles intact. Pupils are equal, round, Unit #: [id number] #: [id number] Patient: WARREN WATSON reactive to light. There is no facial numbness or weakness. Her conversation speech is normal. Palate raised symmetrically. Trapezius full strength bilaterally. Tongue protrudes midline. There is no dysarthria or dysphagia. She has 4+ strength bilaterally. Muscle tone and bulk are normal. There are no involuntary movements and there are no sensory deficits. Rqnjvv-uz-vykx coordination is intact. SUMMARY In summary, the patient has had confusion, most likely due to toxic metabolic encephalopathy. She is on multiple medications which can cause her to be confused. These include her psychiatric medications, especially Zyprexa, Xanax, Klonopin, Flexeril, Benadryl, fentanyl patch. Currently, patient is on morphine as well as Zyprexa, Prozac, Vimpat, Neurontin, Klonopin, Benadryl, Percocet. Her exam is nonfocal. However, given her history of metastatic colorectal cancer, I recommend obtaining an MRI of the brain to rule out metastases to the brain. Further recommendations will be as per test results. Dictated by... Paulino Murry/rd TD: 06/23/2016 10:15 JOB #: [id number] CONSULTATION REPORT Page 1 of 1 X Jennifer Levine MD CONSULTATION REPORT
--- NOTE | ~2016-06-18 | DS ---
Unit #: [id number] #: [id number] Patient: WARREN RUSH [id number] [address] [address] [id number] I MR#: [id number] NAME: WARREN RUSH ROOM: 228 Age: 40 Sex: F Admission Date: 06/19/2016 : 1975 Discharge Date: 06/25/2016 Attending Physician: Hardy Molina M.D. Primary Care Physician: Facundo Oh M.D. DISCHARGE SUMMARY FINAL DIAGNOSES 1. Rectal bleeding. 2. Neutropenia. SECONDARY DIAGNOSES 1. Rectal cancer. 2. Paroxysmal atrial fibrillation. 3. Colon cancer. 4. Rectal cancer in the past. CONSULTS Dr. Cruz. HOSPITAL COURSE This is a pleasant 40-year-old lady with anal cancer on Xeloda and radiation with some neutropenia. She was seen and admitted and evaluated. She was treated with improvement of her white count. She was subsequently evaluated, suitable and stable for discharge and was discharged home with outpatient followup. The plan was for her to follow up with her primary care provider in 3-5 days and with oncology as planned in about 1-2 weeks. Dictated by... Paulino Shaffer/mario alberto TD: 07/10/2016 14:23 JOB #: [id number] DISCHARGE SUMMARY Page 1 of 1 X Sincere Spears MD X DISCHARGE SUMMARY
--- NOTE | ~2016-06-18 | MR18 ---
[facility] A Service of [facility] RADIOLOGY TEXT RESULTS PATIENT: WARREN RUSH LOCATION: [facility] [id number] : [birth year] UNIT #: [id number] AGE: [address]: Hardy Molina MD SEX: F ORDER DR: [id number] [facility] [address] [facility]. [place], [place] [address] [id number] I MR#: [id number] Acc #: [id number] NAME: WARREN RUSH : 1975 SEX: F STUDY DATE/TIME: 06/22/2016 23:05 UNIT: [facility] ROOM: 4 STUDY DESCRIPTION: MR Brain Wo Contrast Attending Physician: Hardy Molina M.D. Ordering Physician: Hardy Molina M.D. Primary Care Physician: Facundo Oh M.D. MRI CENTER REPORT This report is preliminary unless electronic signature is present. EXAM Brain MR without contrast 06/22/2016 HISTORY New onset confusion, history of metastatic colon/anal cancer. New symptoms today. COMPARISON Brain MRI dated 03/05/2016. FINDINGS Markedly motion degraded exam. Contrast could not be administered. No evidence of acute ischemia, hemorrhage or mass. No hydrocephalus or extraaxial fluid collection. IMPRESSION Markedly motion degraded. On this unenhanced exam, no evidence of hemorrhage, mass, acute ischemia, other acute abnormality or substantial interval change since the study of 03/05/2016. Dictated by... Dominick Estrella M.D. THIS IS AN ELECTRONICALLY VERIFIED REPORT Dominick Estrella M.D. at 06/23/2016 3:56 PM COLEEN/jeri TD: 06/23/2016 12:06 JOB #: [id number] [facility] A Service of [facility] RADIOLOGY TEXT RESULTS PATIENT: WARREN RUSH LOCATION: [facility] : 75 UNIT #: [id number] AGE: [address]: Hardy Molina MD SEX: F ORDER DR: MRI CENTER REPORT Page 1 of 1 COPY
--- NOTE | ~2016-06-18 | HP ---
Unit #: [id number] #: [id number] Patient: WARREN RUSH [id number] [address] [place], [place] [address] [id number] I MR#: [id number] NAME: WARREN RUSH ROOM: 564 Age: 40 Sex: F Admission Date: 06/19/2016 : 1975 Attending Physician: Hardy Molina M.D. Primary Care Physician: Facundo Oh M.D. HISTORY AND PHYSICAL REASON FOR EVALUATION Anal carcinoma, bleeding, neutropenia and confusion. HISTORY OF PRESENT ILLNESS The patient is a 40-year-old lady, well known to us, with a recent history of anal carcinoma, locally advanced. She declined surgery so she is being treated with Xeloda and radiation therapy. She presents with acute confusional state and rectal bleeding by history. Today she is unable to give me much of any history. She appears extremely drowsy and it is very difficult to communicate. PAST MEDICAL HISTORY I am familiar with. It is mainly 1. Familial adenomatous polyposis (FAP). 2. Colon cancer followed by rectal cancer. Metastatic to the liver, status post resection and now anal cancer. 3. History of severe depression, anxiety, rectal pain and rather demanding pain medication personality. ALLERGIES Amoxicillin, hydromorphone and aspirin. CURRENT MEDICATIONS 1. Omeprazole. 2. Xeloda. 3. Vimpat. 4. Klonopin. 5. Zofran. 6. Prozac. 7. Flexeril. 8. Gabapentin. 9. Periodic Percocet. REVIEW OF SYSTEMS Not obtainable. She is so drowsy she barely can keep her eyes open. She answers yes or no periodically. She does not give us any further review at all. PHYSICAL EXAMINATION HEENT: She has pinpoint pupils. NECK: Supple. No supraclavicular, axillary or groin nodes. LUNGS: Clear. HEART: Distant S1 and S2. ABDOMEN: Diffuse tenderness. No rebound. Unit #: [id number] #: [id number] Patient: WARREN RUSH RECTAL/PELVIC AND BREAST: Not performed. DIAGNOSTIC STUDIES LABORATORY: Chemistry, glucose 83, BUN 19, creatinine 0.8, sodium 139, potassium 3.5, chloride 106, CO2 24, hemoglobin 12, hematocrit 37.3, white blood cell count 2400, platelets 157,000. ASSESSMENT The patient is a 40-year-old lady with anal cancer on Xeloda, radiation and has mild neutropenia. She is afebrile. She presents with rectal bleeding and acute confusional state. She has a history of FAP and colon cancer and rectal cancer in the past. PLAN We will treat with GCSF, which is Granix 480 mcg subcutaneous today, monitor CBC closely, hold all pain medications and confusion causing medications and monitor closely. Dictated by Ziyad Cruz M.D. SPS/gz TD: 06/21/2016 14:55 JOB #: [id number] HISTORY AND PHYSICAL Page 1 of 1 X Ziyad Cruz MD X HISTORY AND PHYSICAL
--- NOTE | ~2016-06-18 | HP ---
Unit #: [id number] #: [id number] Patient: WARREN RUSH [id number] [address] [place], [place] [address] [id number] I MR#: [id number] NAME: WARREN RUSH ROOM: [facility] Age: 40 Sex: F Admission Date: 06/19/2016 : 1975 Attending Physician: Sincere Spears M.D. Primary Care Physician: Facundo Oh M.D. HISTORY AND PHYSICAL CHIEF COMPLAINT 1. Rectal bleeding. 2. Disorientation. 3. Abdominal pain. HISTORY OF PRESENT ILLNESS The patient is a 40 year old with colorectal cancer, status post total colectomy and now with anal cancer. Had oral chemoradiation. Had history of radiation proctitis and constantly asking for pain meds. She presents for evaluation through the emergency room for rectal bleeding. [facility] were consulted and patient currently is unable to provide a history at this time secondary to some disorientation and drowsiness. She is really lethargic and almost incoherent at this time. History is from collateral sources, ER documentation, and previous records. The patient had recently been evaluated by [facility] and the plan for the recurrent GI bleed is to follow her hemoglobin, limiting meds and to discuss with her oncologist. PAST MEDICAL HISTORY 1. History of colorectal and anal cancer. 2. Severe anxiety, depression. 3. Intractable pain. 4. History of pulmonary embolism. 5. Normocytic anemia. 6. Asthma. 7. Cerebrovascular accident. 8. Polysubstance abuse including marijuana. ALLERGIES Aspirin, amoxicillin, hydromorphone. PAST SURGICAL HISTORY 1. Colon resection. 2. Liver resection. 3. Uterine surgery. HOME MEDICATIONS 1. Vimpat 100 mg p.o. twice daily. 2. Xeloda 1500 mg p.o. daily. 3. Zofran ODT 4 mg p.o. three times a day. 4. Promethazine 25 mg p.o. twice a day. 5. Omeprazole 20 mg p.o. daily. 6. Sumatriptan 50 mg p.o. daily p.r.n. 7. Zyprexa 5 mg p.o. daily. Unit #: [id number] #: [id number] Patient: WARREN RUSH 8. Prozac 20 mg p.o. daily. 9. Flexeril 10 mg p.o. t.i.d. 10. Klonopin 0.5 mg p.o. t.i.d. 11. Gabapentin 800 mg p.o. t.i.d. 12. Percocet 10/325 one tablet every six hours. 13. Benadryl 25 mg every six hours. ALLERGIES Aspirin, amoxicillin, and hydromorphone. SOCIAL HISTORY Lives with family. Smokes half pack cigarettes a day. Does have a history of illicit drug use. FAMILY HISTORY Positive for familial adenomatous polyposis and colon cancer. REVIEW OF SYSTEMS Limited at time as patient is unable to provide history at this time. PHYSICAL EXAMINATION GENERAL: The patient is lying in bed in no acute distress, seemingly drowsy, is easily arousable and seems to chcf obey commands. CENTRAL NERVOUS SYSTEM: Disoriented somewhat. Moves all her limbs spontaneously. I could not really assess cranial nerves. I could not completely assess motor neuron deficit at this time. SKIN: No rashes. EXTREMITIES: No cyanosis or clubbing at this time. NECK: Supple. No thyromegaly. HEENT: Examination of the pupils was limited. LUNGS: Mostly clear to auscultation bilaterally. No wheezing. No rhonchi. CARDIOVASCULAR: First and second heart sounds. ABDOMEN: Full, moves with respirations, soft, nontender, nondistended. RECTAL: Deferred. LYMPHATIC: No enlarged peripheral lymphadenopathy that I could appreciate. DIAGNOSTIC STUDIES LABORATORY: She had chemistries which were normal. CBC: Hemoglobin was 11.3 and 34.9 with WBC of 3.4, platelet count 180,000. ASSESSMENT AND PLAN 1. Rectal bleeding, probably secondary to radiation proctitis. (1) has been consulted. Will follow hemoglobin and hematocrit. 2. Rectal cancer, anal cancer/colorectal cancer: Management as per oncology. Will await input from Dr. Contreras with oncology. 3. Polysubstance abuse: In light of patient's pain, patient is probably using street drugs to kind of cope with her pain. She may be a hospice candidate should her pain become intractable, especially if there is any chance that her anal cancer has invaded her pelvic (2) nerve plexus. 4. Deep venous thrombosis prophylaxis: I put her on sequential compression devices while she is in bed. Hold off on any heparin at this time secondary to recurrent episodes of rectal bleeding. 5. Gastrointestinal prophylaxis: Put her on Protonix 40 mg p.o. daily. 6. Check a CBC, BMP in the morning and follow electrolytes. Disposition to be determined in conjunction with oncology. Will consult oncology. Unit #: [id number] #: [id number] Patient: WARREN RUSH Dictated by Paulino Shaffer/eve TD: 06/19/2016 11:17 JOB #: [id number] HISTORY AND PHYSICAL Page 1 of 1 X Sincere Spears MD HISTORY AND PHYSICAL
[~2016-06-18 22:55] MED LIST changes: +BENADRYL25 M1 PO
[2016-06-19 01:24] LABS: URINE SOURCE CLEAN CATCH
[2016-06-19 01:29] LABS: URINE APPEARANCE CLEAR; URINE BILIRUBIN NEG (NEG); URINE BLOOD TRACE (NEG); URINE COLOR YELLOW; URINE GLUCOSE NEG (NEG); URINE KETONE TRACE (NEG); URINE LEUKOCYTE ESTERASE NEG (NEG); URINE NITRATE NEG (NEG); URINE PH 5.5 (5-8); URINE PROTEIN NEG (NEG)
[2016-06-19 01:32] LABS: U HYALINE CASTS AUWI 0-2 /[LPF]; URBCS1 AUWI 0-2 /[HPF] (0-2); URINE BACTERIA AUWI NEG (NEGATIVE); URINE SQUAMOUS EPITHELIAL CELL NONE SEEN /[HPF]; UWBCS1 AUWI 0-2 (0-5)
[2016-06-19 01:33] LABS: BASOPHIL% 0.5 % (0-2.5); EOSINOPHIL# 0.1 X10e3 (0-0.7); EOSINOPHIL% 1.9 % (0.0-7.0); HEMATOCRIT 37.6 % (35.0-45.0); HEMOGLOBIN 12.5 gm/dL (12.0-16.0); LYMPHOCYTE# 0.7 X10e3 (1.0-3.5); LYMPHOCYTE% 15.2 % (17.0-45.0); MEAN CELL VOLUME 83.6 FL (83-96); MEAN CORPUSCULAR HEMOGLOBIN 27.7 PG (28-34); MEAN CORPUSCULAR HGB CONC 33.1 g/dL (30-36); MEAN PLATELET VOLUME 7.8 FL (6.5-11.5); MONOCYTE# 0.8 X10e3 (0-1.0); MONOCYTE% 16.7 % (3.0-12.0); NEUTROPHIL# 3.2 X10e3 (1.5-7.1); NEUTROPHIL% 65.7 % (40-75); PLATELET COUNT 229 X10e3 (140-420); RED CELL DISTRIBUTION WIDTH 17.6 % (11.0-15.5); WHITE BLOOD COUNT 4.8 X10e3 (4.0-10.5)
[2016-06-19 01:36] LABS: DIFF IND NO
[2016-06-19 01:37] LABS: AMPHETAMINE NEG (NEG); BARBITURATES NEG (NEG); BENZODIAZEPINES NEG (NEG); COCAINE POS (NEG); CULTURE INDICATED? NO; MARIJUANA NEG (NEG); OPIATES NEG (NEG); TRICYCLIC ANTIDEPRESSANTS NEG (NEG); U METHADONE NEG (NEG)
[2016-06-19 01:55] LABS: BILIRUBIN, DIRECT 0.1 mg/dL (0.0-0.2); BILIRUBIN,INDIRECT 0.7 mg/dL (0.0-0.9); BILIRUBIN,TOTAL 0.8 mg/dL (0.2-2.0); BUN/CREATININE RATIO 23.75; CALCIUM SERUM 8.7 mg/dL (8.4-10.2); CREATININE SERUM 0.8 mg/dL (0.6-1.4); GLOM FILT RATE Estimated 92.3 mL/min (>60); POTASSIUM 3.5 mmol/L (3.5-5.1); PROTEIN TOTAL SERUM 7.5 g/dL (6.0-8.3)
[2016-06-19 07:16] LABS: BASOPHIL% 0.6 % (0-2.5); EOSINOPHIL# 0.1 X10e3 (0-0.7); EOSINOPHIL% 1.9 % (0.0-7.0); HEMATOCRIT 34.9 % (35.0-45.0); HEMOGLOBIN 11.3 gm/dL (12.0-16.0); LYMPHOCYTE# 0.6 X10e3 (1.0-3.5); LYMPHOCYTE% 16.6 % (17.0-45.0); MEAN CELL VOLUME 84.7 FL (83-96); MEAN CORPUSCULAR HEMOGLOBIN 27.5 PG (28-34); MEAN CORPUSCULAR HGB CONC 32.5 g/dL (30-36); MEAN PLATELET VOLUME 7.4 FL (6.5-11.5); MONOCYTE# 0.6 X10e3 (0-1.0); MONOCYTE% 16.8 % (3.0-12.0); NEUTROPHIL# 2.2 X10e3 (1.5-7.1); NEUTROPHIL% 64.1 % (40-75); PLATELET COUNT 180 X10e3 (140-420); RED BLOOD COUNT 4.13 X10e (3.90-5.30); RED CELL DISTRIBUTION WIDTH 17.5 % (11.0-15.5); WHITE BLOOD COUNT 3.4 X10e3 (4.0-10.5)
[2016-06-19 07:20] LABS: DIFF IND NO
[2016-06-19 07:38] LABS: BUN/CREATININE RATIO 18.75; CALCIUM SERUM 8.5 mg/dL (8.4-10.2); CREATININE SERUM 0.8 mg/dL (0.6-1.4); GLOM FILT RATE Estimated 92.3 mL/min (>60); POTASSIUM 3.7 mmol/L (3.5-5.1)
[2016-06-20 08:28] LABS: HEMATOCRIT 37.3 % (35.0-45.0); MEAN CELL VOLUME 85.3 FL (83-96); MEAN CORPUSCULAR HEMOGLOBIN 27.5 PG (28-34); MEAN CORPUSCULAR HGB CONC 32.2 g/dL (30-36); MEAN PLATELET VOLUME 8.1 FL (6.5-11.5); RED BLOOD COUNT 4.38 X10e (3.90-5.30); RED CELL DISTRIBUTION WIDTH 17.5 % (11.0-15.5); WHITE BLOOD COUNT 2.4 X10e3 (4.0-10.5)
[2016-06-20 08:54] LABS: ALBUMIN SERUM 3.1 g/dL (3.5-5.0); BILIRUBIN,TOTAL 0.3 mg/dL (0.2-2.0); CALCIUM SERUM 8.6 mg/dL (8.4-10.2); CREATININE SERUM 0.7 mg/dL (0.6-1.4); GLOM FILT RATE Estimated 108.4 mL/min (>60); POTASSIUM 3.8 mmol/L (3.5-5.1); PROTEIN TOTAL SERUM 6.1 g/dL (6.0-8.3)
[2016-06-21 05:35] LABS: HEMATOCRIT 39.2 % (35.0-45.0); HEMOGLOBIN 12.6 gm/dL (12.0-16.0); MEAN CELL VOLUME 85.7 FL (83-96); MEAN CORPUSCULAR HEMOGLOBIN 27.6 PG (28-34); MEAN CORPUSCULAR HGB CONC 32.2 g/dL (30-36); MEAN PLATELET VOLUME 8.4 FL (6.5-11.5); RED BLOOD COUNT 4.57 X10e (3.90-5.30); RED CELL DISTRIBUTION WIDTH 17.6 % (11.0-15.5)
[2016-06-21 05:39] LABS: WHITE BLOOD COUNT 9.4 X10e3 (4.0-10.5)
[2016-06-21 06:05] LABS: BLOOD UREA NITROGEN <5 mg/dL (9-23); BUN/CREATININE RATIO 6.25; CARBON DIOXIDE 24 mmol/L (22-31); CHLORIDE 111 mmol/L (100-111); CREATININE SERUM 0.8 mg/dL (0.6-1.4); GLOM FILT RATE Estimated 92.3 mL/min (>60); GLUCOSE FASTING 86 mg/dL (70-110); POTASSIUM 4.3 mmol/L (3.5-5.1); SODIUM 143 mmol/L (135-145)
[2016-06-22 08:29] LABS: CALCIUM SERUM 8.9 mg/dL (8.4-10.2); CARBON DIOXIDE 25 mmol/L (22-31); CHLORIDE 109 mmol/L (100-111); CREATININE SERUM 0.6 mg/dL (0.6-1.4); GLUCOSE FASTING 88 mg/dL (70-110); POTASSIUM 3.9 mmol/L (3.5-5.1); SODIUM 141 mmol/L (135-145)
[2016-06-22 08:30] LABS: BLOOD UREA NITROGEN <5 mg/dL (9-23); BUN/CREATININE RATIO 8.33
[2016-06-23 05:21] LABS: HEMATOCRIT 34.5 % (35.0-45.0); HEMOGLOBIN 11.4 gm/dL (12.0-16.0); MEAN CELL VOLUME 85.1 FL (83-96); MEAN CORPUSCULAR HGB CONC 32.9 g/dL (30-36); MEAN PLATELET VOLUME 8.3 FL (6.5-11.5); RED BLOOD COUNT 4.06 X10e (3.90-5.30); RED CELL DISTRIBUTION WIDTH 17.8 % (11.0-15.5); WHITE BLOOD COUNT 8.7 X10e3 (4.0-10.5)
[2016-06-23 06:18] LABS: BUN/CREATININE RATIO 8.75; CALCIUM SERUM 8.7 mg/dL (8.4-10.2); CREATININE SERUM 0.8 mg/dL (0.6-1.4); GLOM FILT RATE Estimated 92.3 mL/min (>60); POTASSIUM 3.9 mmol/L (3.5-5.1)
[2016-06-23 06:21] LABS: FOLATE (FOLIC ACID) 14.1 ng/mL (>5.8)
[2016-06-23 07:06] LABS: THYROID STIMULATING HORMONE 0.74 uIU/ml (0.34-5.60)
[2016-06-23 07:13] LABS: FREE THYROXIN (T4) 1.83 ng/dL (0.58-1.64)
[2016-06-24 06:56] LABS: BASOPHIL% 0.3 % (0-2.5); EOSINOPHIL# 0.1 X10e3 (0-0.7); EOSINOPHIL% 3.1 % (0.0-7.0); HEMATOCRIT 34.5 % (35.0-45.0); HEMOGLOBIN 11.3 gm/dL (12.0-16.0); LYMPHOCYTE# 0.5 X10e3 (1.0-3.5); LYMPHOCYTE% 10.3 % (17.0-45.0); MEAN CELL VOLUME 84.7 FL (83-96); MEAN CORPUSCULAR HEMOGLOBIN 27.7 PG (28-34); MEAN CORPUSCULAR HGB CONC 32.7 g/dL (30-36); MEAN PLATELET VOLUME 8.5 FL (6.5-11.5); MONOCYTE# 0.4 X10e3 (0-1.0); MONOCYTE% 9.3 % (3.0-12.0); NEUTROPHIL# 3.7 X10e3 (1.5-7.1); PLATELET COUNT 164 X10e3 (140-420); RED BLOOD COUNT 4.07 X10e (3.90-5.30); RED CELL DISTRIBUTION WIDTH 17.5 % (11.0-15.5); WHITE BLOOD COUNT 4.8 X10e3 (4.0-10.5)
[2016-06-24 06:57] LABS: DIFF IND YES
[2016-06-24 07:28] LABS: BUN/CREATININE RATIO 22.5; CALCIUM SERUM 8.6 mg/dL (8.4-10.2); CREATININE SERUM 0.4 mg/dL (0.6-1.4); GLOM FILT RATE Estimated 130.3 mL/min (>60); POTASSIUM 3.9 mmol/L (3.5-5.1)
[2016-06-24 07:49] LABS: ANISOCYTOSIS SL; PLATELET ESTIMATE NORMAL (NORMAL); RBC NORMAL YES
[2016-06-25 06:04] LABS: CALCIUM SERUM 9.3 mg/dL (8.4-10.2); CREATININE SERUM 0.5 mg/dL (0.6-1.4); GLOM FILT RATE Estimated 121.1 mL/min (>60); POTASSIUM 4.4 mmol/L (3.5-5.1)
== END 2016-06-25 16:21 | disposition home or self-care (01) | DRG 393 ==
LOC: CED 22:55 → C5C 06-19 02:50 → CEDOF 06-19 02:50 → C5B 06-19 02:59 → CEDOF 06-19 02:59 → CED 06-19 02:59 → CEDOF 06-19 06:17 → C5B 06-19 07:41 → CEDOF 06-19 07:41 → C5B 06-19 19:36 → C5C 06-19 19:36 → C2A 06-24 18:03
PROVIDERS: Emergency Medicine; Family Medicine; Internal Medicine; Internal Medicine Medical Oncology; Surgery
DX: K62.7 Radiation proctitis (principal); G92 Toxic encephalopathy; C78.7 Secondary malignant neoplasm of liver and intrahepatic bile duct; F33.2 Major depressive disorder, recurrent severe without psychotic features; C19 Malignant neoplasm of rectosigmoid junction; C21.0 Malignant neoplasm of anus, unspecified; K62.5 Hemorrhage of anus and rectum; D70.9 Neutropenia, unspecified; F41.9 Anxiety disorder, unspecified; Z88.6 Allergy status to analgesic agent; Z88.0 Allergy status to penicillin; Z88.5 Allergy status to narcotic agent; J45.909 Unspecified asthma, uncomplicated; Z86.73 Personal history of transient ischemic attack (TIA), and cerebral infarction without residual deficits; F19.10 Other psychoactive substance abuse, uncomplicated; F17.210 Nicotine dependence, cigarettes, uncomplicated; Z86.711 Personal history of pulmonary embolism
CPT/HCPCS: 51701; 70551; 80048; 80053; 80076; 80307; 81003; 82140; 82274; 82607; 82746; 83605; 84439; 84443; 84703; 85025; 85027; 96360; 97116; 97163; 97165; 97530; 97535; 99285; C9113; J1447; J2060; J2270; J2405; J8521

== ENCOUNTER 2016-08-19 17:21 | Emergency (ER) | payer OTHER ==
--- NOTE | ~2016-08-19 | EKG ---
PATIENT: WARREN RUSH UNIT #: [id number] Ventricular Rate: 77 BPM Atrial Rate: 77 BPM P-R Interval: 118 ms QRS Duration: 90 ms Q-T Interval: 370 ms QTC Calculation(Bezet): 418 ms P [place]: 42 degrees Calculated R [place]: 89 degrees Calculated T [place]: 74 degrees Diagnosis Line: Normal sinus rhythm Diagnosis Line: Normal ECG Diagnosis Line: Diagnosis Line: Confirmed by KRIS POWELL MD ([id number]) on Diagnosis Line: 08/21/2016 9:57:16 AM INTERPRETING EMELINA MÉNDEZ
--- NOTE | ~2016-08-19 | CT2 ---
[facility] A Service of [facility] RADIOLOGY TEXT RESULTS PATIENT: WARREN RUSH LOCATION: [facility] : 75 UNIT #: [id number] AGE: [address]: Kin Gonzalez MD SEX: F ORDER DR: [id number] [facility] [address] [place], [place] [address] [id number] MR#: [id number] Acc #: [id number] NAME: WARREN RUSH : 1975 SEX: F STUDY DATE/TIME: 08/19/2016 21:33 UNIT: [facility] ROOM: STUDY DESCRIPTION: CT Abd and Pelv W Cont Attending Physician: Sundar Gonzalez M.D. Ordering Physician: Emilio Lew M.D. Primary Care Physician: Facundo Oh M.D. MEDICAL IMAGING REPORT This report is preliminary unless electronic signature is present EXAM CT abdomen and pelvis. HISTORY Pain, rectal pain, bleeding times today. Prior colon resection, liver resection, uterine surgery. The patient also carries a history of colon cancer. Prior radiation chemotherapy. TECHNIQUE CT abdomen and pelvis performed with intravenous administration of 100 mL Isovue-370. Enteric contrast not administered. This CT exam was performed with one or more of the following radiation dose reduction techniques: automatic exposure control, adjustment of mA and/or kV according to patient size, and iterative reconstruction. COMPARISON Comparison to CT-PET scan 07/27/2016. FINDINGS The lung bases show innumerable pulmonary nodules demonstrating features of pulmonary metastatic disease on prior PET scan. Given the differences in CT technique, there is no clear indication of increased pulmonary metastatic disease in the interval from CT-PET scan. Inferior heart and pericardium unremarkable. Prior partial resection left hepatic lobe. New PET positive lesion in the caudate lobe. Better visualized in the context of intravascular contrast. Measures about 2.9 cm x 3.5 cm. It exerts mass effect on the portal vein and adjacent inferior vena cava. There is a subtle subcapsular 1 cm hypodensity in segment 6 of the liver. I do not have a distinct correlate on the prior CT-PET scan. Attention at followup recommended. Status post cholecystectomy. Mild ductal prominence. No obstructing process. Spleen, pancreas, adrenal glands, kidneys unremarkable. [facility] A Service of [facility] & [facility] RADIOLOGY TEXT RESULTS PATIENT: WARREN RUSH LOCATION: [facility] : 75 UNIT #: [id number] AGE: [address]: Kin Gonzalez MD SEX: F ORDER DR: CT Pelvis: No inguinal adenopathy. Anal soft tissue thickening as described on CT-PET scan. Abnormal PET tracer accumulation at this location. Concerning for residual or recurrent disease. There is no inguinal adenopathy. No pelvic adenopathy. Uterus and adnexal regions unremarkable. Urinary bladder unremarkable. There is some generalized haziness in the pelvic fat. Similar to prior CT-PET scan. This may be a reflection of prior intervention and/or radiation treatment if the patient's radiation portal involves this area. There is no pelvic fluid collection. No retroperitoneal adenopathy. Distal esophagus, stomach, small bowel unremarkable. I believe the patient is probably status post a subtotal colectomy with ileoanal rectal anastomoses and formation of a neorectum. There is no abnormal soft tissue along the anastomotic suture lines themselves. Air and fluid seen throughout small bowel and neorectum. I see no evidence of active extravasation. The aorta is normal in caliber. The bony structures show no acute abnormality. IMPRESSION 1. Abnormal concentric soft tissue thickening at level of the anus. No significant change from appearance on CT-PET scan 07/27/2016. This area showed abnormal metabolic activity on the PET component of prior study consistent with residual or recurrent malignancy. Please correlate with exam. I see no active extravasation at time of this study. 2. I believe the patient is status post total or subtotal colectomy with formation of a neorectum and ileorectal or ileoanal anastomoses. I see no soft tissue thickening along the suture lines themselves. Air and fluid seen throughout the small bowel and neorectum. 3. Hepatic metastatic focus in the caudate lobe measuring 3.5 cm x 2.9 cm. Previously described on CT-PET scan. It exerts some mass effect on the right portal vein and inferior vena cava. Fat plane between this metastatic lesion and the inferior vena cava is very ill-defined, but I do not believe there is aylin caval invasion. 4. There is an indeterminate 1 cm focus of hypodensity subcapsular location segment 6 of the liver. I do not have a distinct correlate on prior CT-PET scan. There was no abnormal metabolic activity in this region on prior CT-PET scan. Attention at followup recommended. 5. Multifocal pulmonary metastatic nodules. Not significantly changed from prior CT-PET scan. 6. Prior partial left hepatic lobe resection. Status post cholecystectomy. 7. No adenopathy. 8. See remainder of finding in body of report above. Dictated by... Kyaw Faria M.D. THIS IS AN ELECTRONICALLY VERIFIED REPORT Kyaw Faria M.D. at 08/20/2016 10:49 PM [facility] A Service of [facility] RADIOLOGY TEXT RESULTS PATIENT: WARREN RUSH [id number] 75 UNIT #: [id number] AGE: [address]: Kin Gonzalez MD SEX: F ORDER DR: PATRICIA/sanjiv TD: 08/20/2016 12:36 JOB #: [id number] MEDICAL IMAGING REPORT Page 1 of 1 COPY
[2016-08-19 20:39] LABS: BASOPHIL% 0.5 % (0-2.5); EOSINOPHIL# 0.1 X10e3 (0-0.7); EOSINOPHIL% 1.6 % (0.0-7.0); HEMATOCRIT 36.6 % (35.0-45.0); HEMOGLOBIN 11.9 gm/dL (12.0-16.0); LYMPHOCYTE# 0.8 X10e3 (1.0-3.5); LYMPHOCYTE% 20.4 % (17.0-45.0); MEAN CELL VOLUME 85.4 FL (83-96); MEAN CORPUSCULAR HEMOGLOBIN 27.8 PG (28-34); MEAN CORPUSCULAR HGB CONC 32.6 g/dL (30-36); MEAN PLATELET VOLUME 8.3 FL (6.5-11.5); MONOCYTE# 0.4 X10e3 (0-1.0); MONOCYTE% 10.8 % (3.0-12.0); NEUTROPHIL# 2.5 X10e3 (1.5-7.1); NEUTROPHIL% 66.7 % (40-75); PLATELET COUNT 175 X10e3 (140-420); RED BLOOD COUNT 4.29 X10e (3.90-5.30); RED CELL DISTRIBUTION WIDTH 15.1 % (11.0-15.5); WHITE BLOOD COUNT 3.8 X10e3 (4.0-10.5)
[2016-08-19 20:40] LABS: DIFF IND NO
[2016-08-19 20:50] LABS: PROTHROMBIN TIME (PATIENT) 10.9 SECONDS (10.0-11.7)
[2016-08-19 20:51] LABS: PARTIAL THROMBOPLASTIN TIME 54.1 SECONDS (23.5-31.3)
[2016-08-19 20:59] LABS: BILIRUBIN, DIRECT 0.1 mg/dL (0.0-0.2); BILIRUBIN,INDIRECT 0.3 mg/dL (0.0-0.9); BILIRUBIN,TOTAL 0.4 mg/dL (0.2-2.0); BUN/CREATININE RATIO 18.57; CALCIUM SERUM 9.2 mg/dL (8.4-10.2); CREATININE SERUM 0.7 mg/dL (0.6-1.4); GLOM FILT RATE Estimated 108.4 mL/min (>60); POTASSIUM 3.8 mmol/L (3.5-5.1); PROTEIN TOTAL SERUM 7.7 g/dL (6.0-8.3)
== END 2016-08-19 23:40 | disposition home or self-care (01) ==
LOC: CED 17:21
PROVIDERS: Emergency Medicine
DX: C20 Malignant neoplasm of rectum (principal); E11.9 Type 2 diabetes mellitus without complications; J45.909 Unspecified asthma, uncomplicated; J44.9 Chronic obstructive pulmonary disease, unspecified; F41.9 Anxiety disorder, unspecified; F17.200 Nicotine dependence, unspecified, uncomplicated; Z88.1 Allergy status to other antibiotic agents; Z88.5 Allergy status to narcotic agent; Z79.899 Other long term (current) drug therapy
CPT/HCPCS: 36415; 74177; 80048; 80076; 85025; 85610; 85730; 93005; 96361; 96374; 96375; 99284; J2270; J2405; Q9967

== ENCOUNTER 2016-08-20 20:20 | Emergency (ER) | payer OTHER ==
[2016-08-21 03:19] LABS: BASOPHIL% 0.6 % (0-2.5); EOSINOPHIL# 0.1 X10e3 (0-0.7); EOSINOPHIL% 2.2 % (0.0-7.0); HEMATOCRIT 34.7 % (35.0-45.0); HEMOGLOBIN 11.3 gm/dL (12.0-16.0); LYMPHOCYTE# 0.6 X10e3 (1.0-3.5); LYMPHOCYTE% 19.2 % (17.0-45.0); MEAN CELL VOLUME 85.8 FL (83-96); MEAN CORPUSCULAR HGB CONC 32.6 g/dL (30-36); MEAN PLATELET VOLUME 8.2 FL (6.5-11.5); MONOCYTE# 0.4 X10e3 (0-1.0); MONOCYTE% 11.9 % (3.0-12.0); NEUTROPHIL# 2.2 X10e3 (1.5-7.1); NEUTROPHIL% 66.1 % (40-75); PLATELET COUNT 161 X10e3 (140-420); RED BLOOD COUNT 4.05 X10e (3.90-5.30); RED CELL DISTRIBUTION WIDTH 14.7 % (11.0-15.5); WHITE BLOOD COUNT 3.3 X10e3 (4.0-10.5)
[2016-08-21 03:20] LABS: DIFF IND NO
== END 2016-08-21 03:44 | disposition home or self-care (01) ==
LOC: CED 20:20
PROVIDERS: Emergency Medicine
DX: K62.5 Hemorrhage of anus and rectum (principal); C20 Malignant neoplasm of rectum; C78.7 Secondary malignant neoplasm of liver and intrahepatic bile duct; I48.91 Unspecified atrial fibrillation; F17.200 Nicotine dependence, unspecified, uncomplicated; Z88.6 Allergy status to analgesic agent; Z88.1 Allergy status to other antibiotic agents; Z88.5 Allergy status to narcotic agent; Z79.899 Other long term (current) drug therapy
CPT/HCPCS: 36415; 85025; 96361; 96374; 96375; 99283; J1642; J2550

== ENCOUNTER 2016-08-23 21:32 | Emergency (ER) | payer OTHER ==
[2016-08-24 01:15] LABS: BASOPHIL% 0.5 % (0-2.5); EOSINOPHIL# 0.1 X10e3 (0-0.7); EOSINOPHIL% 2.2 % (0.0-7.0); HEMATOCRIT 32.3 % (35.0-45.0); HEMOGLOBIN 10.4 gm/dL (12.0-16.0); LYMPHOCYTE# 0.7 X10e3 (1.0-3.5); LYMPHOCYTE% 22.1 % (17.0-45.0); MEAN CELL VOLUME 85.7 FL (83-96); MEAN CORPUSCULAR HEMOGLOBIN 27.6 PG (28-34); MEAN CORPUSCULAR HGB CONC 32.1 g/dL (30-36); MEAN PLATELET VOLUME 8.3 FL (6.5-11.5); MONOCYTE# 0.4 X10e3 (0-1.0); MONOCYTE% 14.7 % (3.0-12.0); NEUTROPHIL# 1.8 X10e3 (1.5-7.1); NEUTROPHIL% 60.5 % (40-75); PLATELET COUNT 144 X10e3 (140-420); RED BLOOD COUNT 3.77 X10e (3.90-5.30); RED CELL DISTRIBUTION WIDTH 15.1 % (11.0-15.5)
[2016-08-24 01:17] LABS: DIFF IND NO
[2016-08-24 01:36] LABS: BUN/CREATININE RATIO 18.33; CALCIUM SERUM 7.9 mg/dL (8.4-10.2); CREATININE SERUM 0.6 mg/dL (0.6-1.4); POTASSIUM 3.8 mmol/L (3.5-5.1)
== END 2016-08-24 02:40 | disposition home or self-care (01) ==
LOC: CED 21:32
PROVIDERS: Emergency Medicine
DX: C20 Malignant neoplasm of rectum (principal); K92.2 Gastrointestinal hemorrhage, unspecified; F17.200 Nicotine dependence, unspecified, uncomplicated; Z88.6 Allergy status to analgesic agent; Z88.5 Allergy status to narcotic agent; Z79.899 Other long term (current) drug therapy
CPT/HCPCS: 80048; 85025; 96361; 96374; 99284; J2405

== ENCOUNTER 2016-08-29 02:11 | Emergency (ER) | payer OTHER ==
[~2016-08-29] VITALS: Ht 157.5 cm; Wt 52.2 kg
--- NOTE | ~2016-08-29 | CT2 ---
[facility] A Service of [facility] RADIOLOGY TEXT RESULTS PATIENT: WARREN RUSH LOCATION: [facility] : 75 UNIT #: [id number] AGE: [address]: Kin Colvin MD SEX: F ORDER DR: [id number] [facility] [address] [place], [place] [address] [id number] MR#: [id number] Acc #: [id number] NAME: WARREN RUSH : 1975 SEX: F STUDY DATE/TIME: 08/29/2016 8:54 UNIT: [facility] ROOM: STUDY DESCRIPTION: CT Abd and Pelv W Cont Attending Physician: Kin Colvin M.D. Ordering Physician: Alex Fallon D.O. Primary Care Physician: Facundo Oh M.D. MEDICAL IMAGING REPORT This report is preliminary unless electronic signature is present EXAM CT abdomen and pelvis INDICATIONS Rectal bleeding. Abdominal pain for 2 days. Colon and rectal metastases. TECHNIQUE CT abdomen and pelvis with p.o. and IV contrast (100 mL [id number]-[id number] IV contrast). Coronal and sagittal reconstructions were obtained. The CT exam was performed with one or more of the following radiation dose reduction techniques: automatic exposure control, adjustment of mA and/or kV according to patient size, and iterative reconstruction. COMPARISON CT abdomen and pelvis 08/19/2016 and PET/CT dated 07/27/2016. FINDINGS There are innumerable pulmonary metastases in the lung bases. These are unchanged in the short interval. There is a mass in the central right hepatic lobe/caudate lobe measuring up to of 4 cm. This is fairly similar to the patient's prior study where it measured 3.7 cm. There is a subcapsular low attenuation area in segment 6 which is also unchanged; however, it is indeterminate for metastatic disease. There has been left hepatectomy. Mild thickening in the left adrenal gland is unchanged. Solid abdominal organs are unchanged otherwise. The bowel is not dilated. No pathologically enlarged retroperitoneal or mesenteric lymph nodes. [facility] A Service of [facility] RADIOLOGY TEXT RESULTS PATIENT: WARREN RUSH [id number] : 75 UNIT #: [id number] AGE: [address]: Kin Colvin MD SEX: F ORDER DR: Patient is status post colectomy. Pelvis: There is abnormal soft tissue thickening in the left side of the rectum. This was previously shown to be FDG avid. The overall appearance is unchanged from prior exam. No acute osseous abnormalities. IMPRESSION 1. No new findings. 2. Diffuse metastatic disease in the lung bases and in the liver. These have not significantly changed in the short interval. 3. Abnormal thickening of the anus. This has been previously with an FDGI and concern for possible local metastatic disease. Dictated by... Joesph Aguilar M.D. THIS IS AN ELECTRONICALLY VERIFIED REPORT Joesph Aguilar M.D. at 08/29/2016 3:47 PM TOAN/mami TD: 08/29/2016 13:45 JOB #: [id number] MEDICAL IMAGING REPORT Page 1 of 1 COPY
[2016-08-29 04:26] LABS: PROTHROMBIN TIME (PATIENT) 10.5 SECONDS (10.0-11.7)
[2016-08-29 04:28] LABS: PARTIAL THROMBOPLASTIN TIME 26.3 SECONDS (23.5-31.3)
[2016-08-29 05:01] LABS: ALBUMIN SERUM 3.5 g/dL (3.5-5.0); ALKALINE PHOSPHATASE 59 U/L (32-92); ALT (SGPT) 9 U/L (10-40); AST (SGOT) 17 U/L (10-42); BILIRUBIN,TOTAL 0.2 mg/dL (0.2-2.0)
[2016-08-29 05:02] LABS: BILIRUBIN, DIRECT <0.1 mg/dL (0.0-0.2); BILIRUBIN,INDIRECT 0.1 mg/dL (0.0-0.9)
[2016-08-29 05:16] LABS: BASOPHIL% 0.5 % (0-2.5); EOSINOPHIL# 0.1 X10e3 (0-0.7); EOSINOPHIL% 2.6 % (0.0-7.0); HEMATOCRIT 36.8 % (35.0-45.0); HEMOGLOBIN 11.9 gm/dL (12.0-16.0); LYMPHOCYTE# 0.6 X10e3 (1.0-3.5); MEAN CELL VOLUME 85.9 FL (83-96); MEAN CORPUSCULAR HEMOGLOBIN 27.8 PG (28-34); MEAN CORPUSCULAR HGB CONC 32.4 g/dL (30-36); MEAN PLATELET VOLUME 7.9 FL (6.5-11.5); MONOCYTE# 0.4 X10e3 (0-1.0); MONOCYTE% 12.8 % (3.0-12.0); NEUTROPHIL# 2.1 X10e3 (1.5-7.1); NEUTROPHIL% 65.1 % (40-75); PLATELET COUNT 197 X10e3 (140-420); RED BLOOD COUNT 4.29 X10e (3.90-5.30); RED CELL DISTRIBUTION WIDTH 15.2 % (11.0-15.5); WHITE BLOOD COUNT 3.3 X10e3 (4.0-10.5)
[2016-08-29 05:17] LABS: DIFF IND NO
[2016-08-29 06:18] LABS: CALCIUM SERUM 9.2 mg/dL (8.4-10.2); CREATININE SERUM 0.8 mg/dL (0.6-1.4); GLOM FILT RATE Estimated 92.3 mL/min (>60); POTASSIUM 3.9 mmol/L (3.5-5.1)
== END 2016-08-29 12:11 | disposition home or self-care (01) ==
LOC: CED 02:11
PROVIDERS: Emergency Medicine
DX: K62.5 Hemorrhage of anus and rectum (principal); R11.2 Nausea with vomiting, unspecified; J44.9 Chronic obstructive pulmonary disease, unspecified; F41.9 Anxiety disorder, unspecified; F32.9 Major depressive disorder, single episode, unspecified; F17.200 Nicotine dependence, unspecified, uncomplicated; Z88.5 Allergy status to narcotic agent; Z88.1 Allergy status to other antibiotic agents; Z88.8 Allergy status to other drugs, medicaments and biological substances
CPT/HCPCS: 36415; 74177; 80048; 80076; 85025; 85610; 85730; 96361; 96374; 96375; 96376; 99284; J1200; J2270; J2405; J2550; Q9967